=== PATIENT | female | born 1985 | race Caucasian/White ===

== ENCOUNTER 2017-07-31 18:08 | Emergency (ER) | payer MEDICAID, OTHER ==
[~2017-07-31] VITALS: Ht 160 cm; Wt 47.6 kg
[2017-07-31 20:29] LABS: Urine Bilirubin Negative (Negative); Urine Blood 2+ /uL (Negative); Urine Color Yellow (Yellow); Urine Glucose Normal (Normal); Urine Ketone Negative (Negative); Urine Mucus FEW (None Seen); Urine Nitrite Negative (Negative); Urine RBC 3 /hpf (0 - 4); Urine Squamous Epithelial Cell MOD /hpf (<5); Urine Urobilinogen Normal (Negative); Urine pH 6.5 (5.0-8.0)
[2017-07-31] MEDS ORDERED: ONDANSETRON HCL 4 MG/2 ML VIAL IM ONE (21:45)
[2017-07-31] MEDS ORDERED: MORPHINE SULFATE 10 MG/ML INJ 1ML SDV IM ONE (21:45)
[2017-08-01] MEDS ORDERED: MAGNESIUM CITRATE SOLUTION 300 ML BTL PO ONE (00:15)
[2017-08-01 00:18] VITALS: BP 122/76
== END 2017-08-01 00:19 | disposition home or self-care (01) ==
LOC: ER 18:13
DX: K59.00 Constipation, unspecified (principal); K50.90 Crohn's disease, unspecified, without complications; Z90.89 Acquired absence of other organs
CPT/HCPCS: 74176; 76856; 81001; 81025; 96372; 99285; J2270

== ENCOUNTER 2017-08-22 16:09 | Emergency (ER) | payer MEDICAID ==
[~2017-08-22] VITALS: Ht 160 cm; Wt 45.8 kg
[2017-08-22 16:14] VITALS: BP 138/92
== END 2017-08-22 17:49 | disposition left against medical advice (07) ==
LOC: ER 16:09
DX: K50.90 Crohn's disease, unspecified, without complications (principal); Z76.0 Encounter for issue of repeat prescription; Z53.21 Procedure and treatment not carried out due to patient leaving prior to being seen by health care provider

== ENCOUNTER 2017-08-28 12:57 | Emergency (ER) | payer MEDICAID | END 2017-08-28 13:05 | disposition left against medical advice (07) | LOC: ER 12:57 | DX: R05 Cough (principal); Z53.21 Procedure and treatment not carried out due to patient leaving prior to being seen by health care provider ==

== ENCOUNTER 2017-09-20 13:20 | Emergency (ER) | payer MEDICAID ==
[~2017-09-20] VITALS: Ht 160 cm; Wt 47.6 kg
[2017-09-20 14:26] VITALS: BP 135/83
== END 2017-09-20 14:39 | disposition home or self-care (01) ==
LOC: ER 13:20
DX: K50.90 Crohn's disease, unspecified, without complications (principal); Z76.0 Encounter for issue of repeat prescription

== ENCOUNTER 2017-11-20 17:16 | Emergency (ER) | payer MEDICAID ==
[~2017-11-20] VITALS: Ht 160 cm; Wt 42.8 kg
[2017-11-20 17:21] VITALS: BP 128/88
== END 2017-11-21 01:14 | disposition left against medical advice (07) ==
LOC: ER 17:16
DX: R50.9 Fever, unspecified (principal); R11.0 Nausea; Z53.21 Procedure and treatment not carried out due to patient leaving prior to being seen by health care provider

== ENCOUNTER 2018-10-17 11:51 | Emergency (ER) | payer MEDICAID ==
[~2018-10-17] VITALS: Ht 160 cm; Wt 49.9 kg
[2018-10-17 13:01] LABS: Urine WBC None Seen /hpf (0 - 5)
[2018-10-17 13:13] LABS: Basophils # (auto) 0 uL; Basophils % (auto) 0.4 % (0.0-2.0); Eosinophils # (auto) 0.1 uL; Eosinophils % (auto) 0.8 % (0.0-7.0); Hematocrit 36.8 % (36.0-46.0); Hemoglobin 12.1 g/dL (12.2-16.2); Lymphocytes % (auto) 12.5 % (10.0-50.0); Mean Corpuscular Hemoglobin 28.1 pg (28.0-32.0); Mean Corpuscular Hgb Conc. 32.8 g/dL (32.0-36.0); Mean Corpuscular Volume 85.6 fL (80.0-100.0); Monocytes # (auto) 0.5 uL; Monocytes % (auto) 6.4 % (0.0-12.0); Neutrophils # (auto) 6.2 uL; Neutrophils % (auto) 79.9 % (37.0-80.0); Nucleated Red Blood Cells % 0.1 %; Platelet Count (auto) 283 10^3/uL (140-450); Red Cell Distribution Width 14.1 % (11.8-14.3); White Blood Cell 7.7 10^3/uL (4.4-10.8)
[2018-10-17 13:26] LABS: Urine Bacteria NONE SEEN /hpf (None Seen); Urine Blood 3+ /uL (Negative)
[2018-10-17 13:28] LABS: Urine Specific Gravity 1.022 (1.001-1.035)
[2018-10-17 13:34] LABS: Albumin 3.8 g/dL (3.4-5.0); Calcium 8.6 mg/dL (8.5-10.1); Potassium 3.9 mmol/L (3.5-5.1)
[2018-10-17 13:36] LABS: BUN/Creatinine Ratio 12.7; Bilirubin, Total 0.3 mg/dL (0.2-1.0); Total Protein 7.5 g/dL (6.4-8.2)
[2018-10-17 13:45] VITALS: BP 118/68
[2018-10-17] MEDS ORDERED: ONDANSETRON HCL 4 MG/2 ML VIAL IM ONE (14:30)
[2018-10-17] MEDS ORDERED: ALPRAZolam 0.5 MG TAB PO ONE (14:30)
[2018-10-17] MEDS ORDERED: methylPREDNISolone SOD SUCC 125 MG/2 ML VL IM ONE (14:30)
[2018-10-17] MEDS ORDERED: MORPHINE SULFATE 4 MG/ML SYR/VIAL IM ONE (14:30)
== END 2018-10-17 14:53 | disposition home or self-care (01) ==
LOC: ER 11:51
DX: K50.90 Crohn's disease, unspecified, without complications (principal); F17.210 Nicotine dependence, cigarettes, uncomplicated; Z88.0 Allergy status to penicillin
CPT/HCPCS: 36415; 80053; 81001; 81025; 85025; 93005; 96372; 99284; J2270; J2405; J2930

== ENCOUNTER 2019-03-10 20:56 | Emergency (ER) | payer MEDICAID ==
[~2019-03-10] VITALS: Ht 162.6 cm; Wt 59.1 kg
[2019-03-10 21:07] VITALS: BP 135/79
== END 2019-03-10 22:05 | disposition left against medical advice (07) ==
LOC: ER 20:58
DX: Z76.0 Encounter for issue of repeat prescription (principal); Z53.21 Procedure and treatment not carried out due to patient leaving prior to being seen by health care provider

== ENCOUNTER 2019-03-16 17:42 | Emergency (ER) | payer MEDICAID ==
[~2019-03-16] VITALS: Ht 162.6 cm; Wt 58.1 kg
[2019-03-16 18:10] VITALS: BP 118/85
== END 2019-03-16 21:44 | disposition left against medical advice (07) ==
LOC: ER 17:42
DX: R22.43 Localized swelling, mass and lump, lower limb, bilateral (principal); Z53.21 Procedure and treatment not carried out due to patient leaving prior to being seen by health care provider

== ENCOUNTER 2019-03-22 18:37 | Emergency (ER) | payer MEDICAID ==
[~2019-03-22] VITALS: Ht 162.6 cm; Wt 63.5 kg
[2019-03-22 20:01] LABS: Basophils # (auto) 0 uL; Hemoglobin 10.7 g/dL (12.2-16.2); Monocytes # (auto) 0.4 uL; White Blood Cell 4.1 10^3/uL (4.4-10.8)
[2019-03-22 20:04] LABS: Basophils % (auto) 0.6 % (0.0-2.0); Eosinophils # (auto) 0.2 uL; Hematocrit 33.6 % (36.0-46.0); Lymphocytes # (auto) 1.4 uL; Lymphocytes % (auto) 35.2 % (10.0-50.0); Mean Corpuscular Hemoglobin 22.7 pg (28.0-32.0); Mean Corpuscular Hgb Conc. 31.7 g/dL (32.0-36.0); Mean Corpuscular Volume 71.4 fL (80.0-100.0); Monocytes % (auto) 10.4 % (0.0-12.0); Neutrophils % (auto) 49.8 % (37.0-80.0); Nucleated Red Blood Cells % 0.2 %; Platelet Count (auto) 383 10^3/uL (140-450); Red Blood Cells 4.71 10^6/uL (4.0-5.20)
[2019-03-22 20:06] LABS: Albumin 3.6 g/dL (3.4-5.0); BUN/Creatinine Ratio 9.8; Calcium 8.9 mg/dL (8.5-10.1); Potassium 3.4 mmol/L (3.5-5.1)
[2019-03-22 20:14] LABS: Bilirubin, Total 0.2 mg/dL (0.2-1.0); Total Protein 7.1 g/dL (6.4-8.2)
[2019-03-22 20:18] LABS: Partial Thromboplastin Time 30.2 sec (23.78-33.04); Prothrombin Time 10.7 sec (9.27-12.13)
[2019-03-22] MEDS ORDERED: SODIUM CHLORIDE 0.9% 1,000 ML IV ONE (22:15)
[2019-03-22] MEDS ORDERED: cefTRIAXone 1GM/50ML D5W 50 ML IV ONE (22:15)
[2019-03-22] MEDS ORDERED: VANCOMYCIN 1GM/250ML 250 ML IV ONE (22:15)
[2019-03-22] MEDS ORDERED: ONDANSETRON HCL 4 MG/2 ML VIAL IV ONE (23:15)
[2019-03-22] MEDS ORDERED: MORPHINE SULFATE 4 MG/ML SYR/VIAL IV ONE (23:15)
[2019-03-23] MEDS ORDERED: diphenhdrAMINE HCL 50 MG/1 ML VL IV ONE (01:15)
[2019-03-23 03:08] VITALS: BP 98/56
== END 2019-03-23 03:30 | disposition home or self-care (01) ==
LOC: ER 18:37
DX: S09.90XA Unspecified injury of head, initial encounter (principal); L03.116 Cellulitis of left lower limb; L03.115 Cellulitis of right lower limb; Z88.0 Allergy status to penicillin; W18.39XA Other fall on same level, initial encounter; Y93.89 Activity, other specified; Y99.8 Other external cause status; Y92.89 Other specified places as the place of occurrence of the external cause
CPT/HCPCS: 36415; 70450; 80053; 83880; 85025; 85379; 85610; 85730; 87040; 93005; 96365; 96366; 96367; 96375; 99284; J0696; J1200; J2270; J2405; J3370

== ENCOUNTER 2019-04-06 11:56 | Emergency (ER) | payer MEDICAID ==
[~2019-04-06] VITALS: Ht 160 cm; Wt 59.0 kg
[2019-04-06 12:04] VITALS: BP 108/73
== END 2019-04-06 14:15 | disposition home or self-care (01) ==
LOC: ER 11:56
DX: F41.1 Generalized anxiety disorder (principal); F17.210 Nicotine dependence, cigarettes, uncomplicated; Z76.0 Encounter for issue of repeat prescription; Z88.0 Allergy status to penicillin
CPT/HCPCS: 81002; 81025

== ENCOUNTER 2019-05-05 14:54 | Emergency (ER) | payer MEDICAID ==
[~2019-05-05] VITALS: Ht 160 cm; Wt 60.3 kg
[2019-05-05 15:03] VITALS: BP 118/67
== END 2019-05-05 16:32 | disposition home or self-care (01) ==
LOC: ER 14:54
DX: F41.9 Anxiety disorder, unspecified (principal); F17.210 Nicotine dependence, cigarettes, uncomplicated; Z88.0 Allergy status to penicillin; Z76.0 Encounter for issue of repeat prescription

== ENCOUNTER 2019-05-22 15:35 | Emergency (ER) | payer MEDICAID ==
[~2019-05-22] VITALS: Ht 160 cm; Wt 59.0 kg
[2019-05-22] MEDS ORDERED: ASPirin 81 mg TAB PO ONE (16:00)
[2019-05-22] MEDS ORDERED: LORazepam 0.5 MG TAB PO ONE (16:00)
[2019-05-22] MEDS ORDERED: SODIUM CHLORIDE 0.9% 1,000 ML IV ONE (16:39)
[2019-05-22 16:45] LABS: Basophils # (auto) 0.1 uL; Basophils % (auto) 0.9 % (0.0-2.0); Eosinophils # (auto) 0 uL; Eosinophils % (auto) 0.3 % (0.0-7.0); Lymphocytes # (auto) 1.2 uL; Mean Corpuscular Hemoglobin 22.8 pg (28.0-32.0); Monocytes # (auto) 0.4 uL; Monocytes % (auto) 5.8 % (0.0-12.0); White Blood Cell 6.6 10^3/uL (4.4-10.8)
[2019-05-22 16:47] LABS: Hematocrit 37.4 % (36.0-46.0); Hemoglobin 11.8 g/dL (12.2-16.2); Lymphocytes % (auto) 17.3 % (10.0-50.0); Mean Corpuscular Hgb Conc. 31.5 g/dL (32.0-36.0); Mean Corpuscular Volume 72.1 fL (80.0-100.0); Neutrophils % (auto) 75.7 % (37.0-80.0); Platelet Count (auto) 349 10^3/uL (140-450); Red Blood Cells 5.18 10^6/uL (4.0-5.20)
[2019-05-22 16:53] LABS: Red Cell Distribution Width 22.7 % (11.8-14.3)
[2019-05-22 17:08] LABS: Alanine Aminotransferase 15 U/L (13-56); Anion Gap 10 (5-15); Aspartate Aminotransferase 12 U/L (15-37); BUN/Creatinine Ratio 15.3; Blood Urea Nitrogen 11 mg/dL (7-18); Calcium 8.6 mg/dL (8.5-10.1); Carbon Dioxide 22 mmol/L (21-32); Chloride 109 mmol/L (98-107); GFR African American 119 mL/min; GFR Non-African American 98 mL/min; Potassium 4.4 mmol/L (3.5-5.1); Sodium 141 mmol/L (136-145)
[2019-05-22 17:20] LABS: Alkaline Phosphatase 56 U/L (45-117); Bilirubin, Total 0.4 mg/dL (0.2-1.0); Glucose 86 mg/dL (74-106); Total Protein 7.4 g/dL (6.4-8.2)
[2019-05-22 17:45] VITALS: BP 96/57
[2019-05-22] MEDS ORDERED: KETOROLAC TROMETH 60MG/2ML VIAL IM ONE (17:45)
[2019-05-22] MEDS ORDERED: TAMSULOSIN HYDROCHLORIDE 0.4 MG CAP PO ONE (17:45)
== END 2019-05-22 18:15 | disposition home or self-care (01) ==
LOC: ER 15:42
DX: N20.0 Calculus of kidney (principal); F41.9 Anxiety disorder, unspecified; F17.210 Nicotine dependence, cigarettes, uncomplicated; Z88.0 Allergy status to penicillin
CPT/HCPCS: 36415; 74176; 80053; 84484; 85025